=== PATIENT | male | born 1965 | race American Indian/Alaskan Native ===

== ENCOUNTER 2018-11-01 20:56 | Emergency (ER) | payer OTHER ==
--- NOTE | 2018-11-01 21:33 | Emergency Department Report ---
HPI - General Chief Complaint: High BP Time Seen by Provider: 11/01/18 21:21 - HPI HPI: Room 10 The patient is a 53-year-old male presenting with a chief complaint of hypertension. Per nursing the patient was sent [facility] secondary to hypertension. Nursing reported the patient's blood pressure was 180 systolic at the retirement. 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 Patient denies complaints Location: [See above] Duration: [See above] Quality: Hypertension Severity: 180 Systolic Modifying factors: [see above] Context: [see above] Mode of transportation: [not driving] ED Past Medical Hx - Past Medical History Hx Hypertension: Yes Hx CVA: Yes Hx Diabetes: Yes - Surgical History Past Surgical History?: No - Family History Family history: no significant - Social History Smoking Status: Never Smoker Substance Use Type: None ED Review of Systems ROS: Stated complaint: HIGH BP Other details as noted in HPI Constitutional: no symptoms reported Eyes: denies: eye pain ENT: denies: throat pain Respiratory: no symptoms reported Cardiovascular: denies: chest pain Endocrine: no symptoms reported Gastrointestinal: denies: abdominal pain Genitourinary: denies: dysuria Musculoskeletal: denies: back pain Neurological: denies: headache Physical Exam - Physical Exam Vital Signs: Vital Signs 11/01/18 21:06 Temperature 98.3 F Pulse Rate 86 Blood Pressure 145/95 O2 Sat by Pulse 98 Oximetry Vital Signs 11/01/18 11/01/18 21:06 21:38 Temperature 98.3 F Pulse Rate 86 84 Respiratory 16 Rate Blood Pressure 145/95 Blood Pressure 135/88 [Left] O2 Sat by Pulse 98 100 Oximetry Physical Exam: GENERAL: The patient is well-developed well-nourished male lying on stretcher not appearing to be in acute distress. [] HEENT: Normocephalic. Atraumatic. Extraocular motions are intact. Patient has moist mucous membranes. NECK: Supple. Trachea midline CHEST/LUNGS: Clear to auscultation. There is no respiratory distress noted. HEART/CARDIOVASCULAR: Regular. There is no tachycardia. There is no gallop rub or murmur. ABDOMEN: Abdomen is soft, nontender. Patient has normal bowel sounds. There is no abdominal distention. SKIN: There is no rash. There is no edema. There is no diaphoresis. NEURO: The patient is awake, and alert. The patient is cooperative. The patient has a right-sided hemiparesis and aphasia from previous CVA. MUSCULOSKELETAL: There is no evidence of acute injury. ED Course Vital Signs 11/01/18 21:06 Temperature 98.3 F Pulse Rate 86 Blood Pressure 145/95 O2 Sat by Pulse 98 Oximetry ED Medical Decision Making - Differential Diagnosis hypertension Critical care attestation.: If time is entered above; I have spent that time in minutes in the direct care of this critically ill patient, excluding procedure time. ED Disposition Clinical Impression: Hypertension Disposition: [id number]/TX-70 ANOTHER TYPE HLTHCARE Is pt being admited?: No Does the pt Need Aspirin: No Condition: Stable Instructions: Hypertension (ED) Additional Instructions: Return to the emergency department immediately should you develop worsening symptoms, fever, inability to tolerate food or liquid or any other concerns. Referrals: TOÑO MCMAHON DO [Primary Care Provider] - 3-5 Days Time of Disposition: 21:39
== END 2018-11-02 00:03 | disposition other institution (70) ==
LOC: ED 20:56
CPT/HCPCS: 99283